=== PATIENT | male | born 1975 | race Caucasian/White ===

== ENCOUNTER 2017-03-07 04:51 | Emergency (ER) | payer OTHER ==
[~2017-03-07] VITALS: Ht 185.4 cm; Wt 109.6 kg
[~2017-03-07 04:51] MED LIST: EPP3/2 INJ; FEXO1TAB49 PO; PRED50TA PO
[2017-03-07 04:56] VITALS: TEMP 36.7; Ht 185.4 cm; Wt 109.6 kg
[2017-03-07] MEDS ORDERED: NORCO 5/325MG HOME PACK PO ONE (05:30)
[2017-03-07] MEDS ORDERED: AMOXICIL/CLAVU 875MG HOME PACK PO ONE (05:30)
[2017-03-07] MEDS ORDERED: AMOX875T PO (05:49)
[2017-03-07] MEDS ORDERED: PRED50TA PO (05:49)
[2017-03-07] MEDS ORDERED: OXYC-57 PO (05:49)
--- NOTE | 2017-03-07 05:49 | EMERGENCY ROOM VISIT NOTE ---
ED Visit Note First contact with patient: 05:07 Chief Complaint: RIGHT Ear Pain History of Present Illness: Patient is a 41-year-old male who presents to the emergency department by private vehicle for evaluation of his RIGHT ear pain. The patient reports that he is had nasal congestion and cold like symptoms for the past few days. He was awoken abruptly this morning from sleep with intense pain to the RIGHT ear. He reports a mild headache as well. He rates his current discomfort as a 10/10. He denies any fevers, chills, blurry vision, double vision, neck pain/stiffness, nausea, or vomiting. Medications: Reviewed and discussed with the patient. Allergies: No known allergies. PMH: No pertinent past medical history. SHx: Patient is a 41-year-old male who lives locally. ROS: All pertinent positive and negative review of systems are appropriately documented in the History of Present Illness. Physical Exam: VITAL SIGNS - Vital signs and nursing notes were reviewed. GENERAL - Well nourished, well developed 41-year-old male in no acute distress. Pt communicates well with provider and answers questions appropriately. SKIN - Without rash. HEAD - NC/AT with no obvious deformities. EYES - PERRL with EOMI bilaterally. Sclera without injection. Palpebral conjunctiva pink and moist. EARS - No deformities of external structures noted on gross examination bilaterally. No pain elicited with palpation of the tragus bilaterally. External auditory canals without discharge or otorrhea. RIGHT tympanic membrane bulging and erythematous with PERRLA material appreciated behind the tympanic membrane. No perforation. No bullae. (Memory without signs of infection. NOSE - Midline and without cyanosis. No purulent drainage noted. Nasal mucosa without mucus discharge. MOUTH/OROPHARYNX - Without perioral cyanosis. Buccal mucosa pink and moist and without leukoplakia. Tongue midline with equal elevation of palate bilaterally. No tonsillar hypertrophy, erythema, or exudates noted. Good dentition noted. NECK - Neck with FROM. Supple to palpation. No lymphadenopathy noted. No nuchal rigidity. LUNGS - Chest wall symmetric without accessory muscle use, intercostals retractions, or central cyanosis. Normal vesicular breath sounds CTA B/L. No wheezes, rales, or rhonchi appreciated. CARDIAC - RRR with S1/S2. No murmur, rubs, or gallops appreciated. ED Course: Patient was seen and evaluated by myself. Patient was treated with initial dose of Augmentin in the emergency department. He was provided prednisone as well. Patient was provided a home pack for Percocet for pain. He was instructed on following up with his primary care provider as well as worrisome symptoms for return visit to the emergency department. Patient discharged home afebrile and in good condition. In the evaluation and treatment of this patient, the following differential diagnoses were considered: Otitis externa, bullous myringitis, tympanic perforation, amongst others. Impression: RIGHT Acute Otitis Media Discharge Instructions: You have been treated in the Emergency Department for an Inner Ear Infection ( Otitis Media). You were prescribed Augmentin to be taken as prescribed. This is an antibiotic. All antibiotics have the potential to cause diarrhea. Stop this medication and contact a medical provider if you were to develop any significant adverse side effects including: wheezing, shortness of breath, passing out, vomiting, or a diffuse rash. Always take antibiotics as directed and COMPLETE the ENTIRE course regardless of the improvement of your symptoms. You have been prescribed Percocet to be used for pain control. This is a narcotic medication. You cannot drive or consume alcohol while on this medicine. This medicine should only be used for pain that cannot be controlled with thes-uax-scdksqt pain medicines. For pain and fever control, you can use the following eyyh-lky-wzreyjm medicines (if >12 yo): - Regular strength (325mg/tab) Tylenol (acetaminophen) 2 tabs every 4-6 hours as needed. Do not exceed 12 tablets in a 24 hour period. Avoid taking more than 4 grams (4000 mg) of Tylenol per day. This includes any other sources of acetaminophen you may take on a regular basis. - Regular strength (200 mg/tab) Advil (ibuprofen) 1-2 tabs every 4-6 hours as needed. Do not exceed a dose of 3200 mg per day. You should follow-up with your Primary Care Provider from today's Emergency Department visit. Return to the emergency department if you develop the following symptoms despite treatment course outlined above: headache, fever, intractable pain, increased redness, swelling, or purulent discharge. Current/Historical Medications Scheduled Amoxicillin & Pot Clavulanate (Augmentin 875-125 mg), 875 MG PO BID Prednisone (Prednisone), 50 MG PO DAILY Scheduled PRN Oxycodone/Acetaminophen 5MG/325MG (Percocet 5MG/325MG), 1-2 TABS PO Q6 PRN for Pain Allergies Coded Allergies: No Known Allergies (Unverified , 03/07/17) Vital Signs Date Time Temp Pulse Resp B/P Pulse Ox O2 Delivery O2 Flow Rate FiO2 03/07/17 05:58 84 18 120/68 96 03/07/17 04:56 36.7 74 20 132/83 95 Room Air Medications Administered Medications (Trade) Dose Ordered Sig/Obey Route Start Time Stop Time Status Last Admin Dose Admin Amoxicillin/ Clavulanate Potassium (Augmentin 875MG Home Pack) 1 homepack UD ONCE PO 03/07/17 05:30 03/07/17 05:31 DC 03/07/17 05:37 1 HOMEPACK Prednisone (PredniSONE TAB) 60 mg NOW STAT PO 03/07/17 05:27 03/07/17 05:28 DC 03/07/17 05:37 60 MG Acetaminophen/ Hydrocodone Bitart ([place] 5/325mg Home Pack) 1 homepack UD ONCE PO 03/07/17 05:30 03/07/17 05:31 DC 03/07/17 05:37 1 HOMEPACK Departure Information Impression Primary Impression: Acute otitis media Dispostion Home / Self-Care Condition GOOD Prescriptions Oxycodone/Acetaminophen 5MG/325MG (PERCOCET 5MG/325MG) Tab 1-2 TABS PO Q6 Y for Pain, #14 TAB For Initial Treatment Prov: Abdirizak Cruz PA-C 03/07/17 Prednisone (Prednisone) 50 Mg Tab 50 MG PO DAILY for 4 Days, #4 TAB Prov: Abdirizak Cruz PA-C 03/07/17 Amoxicillin & Pot Clavulanate (Augmentin 875-125 mg) 1 Tab Tab 875 MG PO BID for 10 Days, #20 TAB Prov: Abdirizak Cruz PA-C 03/07/17 Referrals Ania Cisneros DO (PCP) Patient Instructions ED Otitis Media Abx Tx, [facility] Additional Instructions You have been treated in the Emergency Department for an Inner Ear Infection ( Otitis Media). You were prescribed Augmentin to be taken as prescribed. This is an antibiotic. All antibiotics have the potential to cause diarrhea. Stop this medication and contact a medical provider if you were to develop any significant adverse side effects including: wheezing, shortness of breath, passing out, vomiting, or a diffuse rash. Always take antibiotics as directed and COMPLETE the ENTIRE course regardless of the improvement of your symptoms. You have been prescribed Percocet to be used for pain control. This is a narcotic medication. You cannot drive or consume alcohol while on this medicine. This medicine should only be used for pain that cannot be controlled with wjof-web-gtzboeb pain medicines. For pain and fever control, you can use the following yncv-sek-afwqygi medicines (if >12 yo): - Regular strength (325mg/tab) Tylenol (acetaminophen) 2 tabs every 4-6 hours as needed. Do not exceed 12 tablets in a 24 hour period. Avoid taking more than 4 grams (4000 mg) of Tylenol per day. This includes any other sources of acetaminophen you may take on a regular basis. - Regular strength (200 mg/tab) Advil (ibuprofen) 1-2 tabs every 4-6 hours as needed. Do not exceed a dose of 3200 mg per day. You should follow-up with your Primary Care Provider from today's Emergency Department visit. Return to the emergency department if you develop the following symptoms despite treatment course outlined above: headache, fever, intractable pain, increased redness, swelling, or purulent discharge. Problem Qualifiers Primary Impression: Acute otitis media Otitis media type: suppurative Laterality: right Recurrence: not specified as recurrent Spontaneous tympanic membrane rupture: without spontaneous rupture Qualified Codes: H66.001 - Acute suppurative otitis media without spontaneous rupture of ear drum, right ear
[2017-03-07 05:58] VITALS: BP 120/68; PULSE 84; O2SAT 96
== END 2017-03-07 06:00 | disposition home or self-care (01) ==
LOC: C.EDB 04:52 → MERGE 04:52 → C.EDA 06:00
DX: H66.001 Acute suppurative otitis media without spontaneous rupture of ear drum, right ear (principal)